=== PATIENT | male | born 1950 | race Caucasian/White ===

== ENCOUNTER 2017-06-18 18:59 | Emergency (ER) | payer MEDICARE, BC ==
[~2017-06-18 18:59] MED LIST: BUTALB-APAP-CA1 EACH PO; FLECTOR1 PATCH TRANSDERM; HYDROCODON-ACE1 EAC7 PO; HYDROCODONE-APA1 TAB PO; LEVSIN/ANASP0.125 MG PO; MONODOX100 MG PO; NEURONTIN 300300 MG PO; TOPROL XL100 MG PO
[2017-06-18 19:36] LABS: APPEARANCE HAZY (CLEAR); BILIRUBIN NEGATIVE (NEGATIVE); COLOR YELLOW (YELLOW); GLUCOSE NEGATIVE (NEGATIVE); KETONE NEGATIVE (NEGATIVE); NITRITE NEGATIVE (NEGATIVE); PROTEIN TRACE mg/dL (NEGATIVE); UROBILINOGEN NORMAL (NORMAL)
[2017-06-18 19:38] LABS: RED CELLS - URINE >50 /hpf (0-5)
[2017-06-18 19:43] LABS: BACTERIA FEW /hpf (NONE SEEN)
[2017-06-18 20:13] LABS: BASOPHILS 0.2 % (0-2); EOSINOPHILS 0.2 % (0-7); HEMATOCRIT 42.1 % (42.0-54.0); HEMOGLOBIN 14.5 g/dL (13.5-17.5); IMMATURE GRANULOCYTES 0.3 % (0-5); LYMPHOCYTES 6.1 % (15-50); MCH 31.8 pg (26.0-34.0); MCHC 34.4 g/dL (31.0-37.0); MCV 92.3 fL (80.0-100.0); MEAN PLATELET VOLUME 10.1 fL (7.4-10.4); MONOCYTES 2.2 % (2-11); PLATELET COUNT 251 10x3/uL (130-400); RBC 4.56 10x6/uL (4.20-6.10); RDW 13.3 % (11.5-14.5); WBC 11.1 10x3/uL (4.8-10.8)
[2017-06-18 20:33] LABS: ALBUMIN 4.3 g/dL (3.4-5.0); ALKALINE PHOSPHATASE 103 U/L (46-116); ALT (SGPT) 47 U/L (10-68); BILIRUBIN - TOTAL 0.49 mg/dL (0.2-1.3); CALC OSMOLALITY 278 mosm/kg (275-300); CALCIUM 9.1 mg/dL (8.5-10.1); CARBON DIOXIDE 29.7 mmol/L (21.0-32.0); CHLORIDE - SERUM 103 mmol/L (98-107); CREATININE - SERUM 1.3 mg/dL (0.6-1.3); GLUCOSE 107 mg/dL (74-106); LIPASE 118 U/L (73-393); POTASSIUM - SERUM 4.2 mmol/L (3.5-5.1); PROTEIN - SERUM 7.9 g/dL (6.4-8.2); SODIUM 139 mmol/L (136-145); UREA NITROGEN 14 mg/dL (7-18); eGFR NON AFRICAN AMERICAN 59 mL/min (90-120)
[2017-06-18 20:34] LABS: TROPONIN-I < 0.017 ng/mL (0.000-0.060)
[2017-06-26] MEDS ORDERED: FLOMAX0.4 MG PO (12:08)
== END 2017-06-18 22:49 | disposition home or self-care (01) ==
LOC: D.ER 18:59
PROVIDERS: Family Medicine
DX: N20.1 Calculus of ureter (principal)

== ENCOUNTER → 2017-06-21 16:00 | Outpatient (CLI) | payer MEDICARE, BC ==
[2015-10-08 11:06] VITALS: BMI 23.1
[~2017-06-21 16:00] MED LIST changes: +FLOMAX0.4 MG PO; +NORCO 7.5/325 T1 TA1 PO
== END | disposition home or self-care (01) ==
LOC: D.LABREF 16:00
DX: N39.0 Urinary tract infection, site not specified (principal)

== ENCOUNTER 2017-06-22 10:11 | Day surgery (SDC) | payer MEDICARE, BC ==
[~2017-06-22] VITALS: Ht 182.9 cm; Wt 83.5 kg
--- NOTE | ~2017-06-22 | OP ---
PATIENT NAME: ABBEY WILSON MEDICAL RECORD: [id number] :52 LOCATION:D.[facility]32 ADMISSION DATE: SURGEON: JODI MADRID MD DATE OF OPERATION: 06/22/2017 SURGEON: Jodi Madrid MD ANESTHESIA: MAC by Chetan Dorado CRNA DIAGNOSIS: Bilateral renal stones, 10 mm on the left and 22 mm on the right with a 4 mm left distal ureteral stone. PROCEDURES: Cystoscopy, left retrograde pyelogram. FINDINGS: Radiodense renal stone, 10 mm on the left and 22 mm on the right. Impacted left distal ureteral stone at the ureteral orifice. No bladder tumors. Mildly obstructive prostate with trabeculated bladder with cellules. ESTIMATED BLOOD LOSS: None. CLINICAL HISTORY: This is a 66-year-old male, who has a previous history of kidney stones. He presented to the Emergency Room with acute left flank pain about [address] scan showed a large renal stones bilaterally with also smaller left and right lower pole renal stones. He has flank pain from a 4-mm left distal ureteral stone. He has ongoing pain requiring [place] 10/325 for control. He is also on Flomax. He comes today to have left ureteroscopy and stone extraction. Because of the large size of the stone burden in both kidneys, he will require a left percutaneous nephrolithotomy in the future and followed by a right percutaneous nephrolithotomy. He was given IV antibiotics prior to the procedure. DESCRIPTION OF PROCEDURE: The patient was given IV sedation. He was placed in the dorsal lithotomy position, prepped and draped. Fluoroscopy revealed that the large renal stones were radiodense. The lower pole stones were not so easily seen. The distal ureteral stone was also not easily seen. Going in with cystoscopy using a 21-Colombian cystoscope with 30-degree lens, the penile urethra was nonobstructive. Prostatic urethra shows some mild lateral lobe enlargement, but primarily has some bladder neck stenosis. Going into the bladder, there were single ureteral orifices on each side. The bladder is mildly trabeculated, but there are diverticula and cellules all around. No bladder tumors were seen. The stone was seen at the ureteral orifice. Usually when we have the situation, the stone is heavily impacted and it is difficult to get past. I used an open-ended ureteral catheter 5-Colombian to try and push the stone back from the ureteral orifice. We performed a retrograde pyelogram using diluted contrast. With great difficulty, this contrast migrated around the stone and highlighted the hydronephrotic left ureter. We attempted to get a Glidewire around the stone, but we were unsuccessful in doing so. As a result, we abandon further attempts. The bladder was emptied through the scope. I then discussed the situation with interventional radiology, Dr. Rg. We will have Dr. Rg place a left nephrostomy tube today to decompress the left kidney. Next week on Sunday, the patient will be brought back to the hospital. He will have a left percutaneous nephrolithotomy access performed through the nephrostomy tube. I will then perform left percutaneous nephrolithotomy to remove the left renal pelvis stone as well as the left lower pole renal stone. Finally, left ureteroscopy will be performed in order to push the distal ureteral stone out of OPERATIVE REPORT [id number] STEVE,SKIP T the ureteral orifice and into the bladder. TRANSINT:[id number] Voice Confirmation ID: [id number] DOCUMENT ID: [id number] JODI MADRID MD at 1235 CC: [id number] DICTATION DATE: 06/22/17 1440 WASTE PICKER: 06/22/17 1505 REG [facility] [address] [place] [id number]
--- NOTE | ~2017-06-22 | HEMODYNAMI ---
PATIENT:ABBEY WILSON MEDICAL RECORD: [id number] : 52 LOCATION:[facility] ADMISSION DATE: 06/22/17 Generatedon:06/22/201719:23 Patient name: ABBEY WILSON Patient #: [id number] SSN: : 1950 Date of study: 06/22/2017 Page: Of Hemodynamic Procedure Report Patient Data Patient Demographics Procedure consent was obtained First Name: ABBEY Gender: Male Last Name: STEVE : 1950 [facility] Initial: T Age: 66 year(s) Patient #: [id number] Race: Unknown Additional ID: [id number] Contact details [address]: [address] [place] [address] ROAD State: [place] City: [place] Zip code: [address] Past Medical History Allergies: No known allergies Admission Admission Data Admission Date: 06/22/2017 Admission Time: 10:11 Weight (lbs.): 184 Weight (kg.): 83.46 Procedure Procedure Types Cath Procedure Peripheral Cath Diagnostic Procedure Cath Peripheral Nephro Nephrostomy Tubes Procedure Description Procedure Date Procedure Date: 06/22/2017 Procedure Start Time: 18:17 Procedure Staff Name Function Hector Rg MD Performing Physician Luisana Zamora RT Composite Technician Luisana Zamora RT Monitor Mary Rosales RN Nurse Alyssa Johnson RN Nurse Bhupinder Martinez RT Scrub Procedure Data Cath Procedure Fluoroscopy Diagnostic fluoroscopy Total fluoroscopy Time: time: 12.7 min 12.7 min Diagnostic fluoroscopy Total fluoroscopy dose: 324 dose: 324 mGy mGy Contrast Material Contrast Material Type Amount (ml) Isovue 300 160 Procedure Medications Medication Administration Route Dosage Heparin Flush Bag added to field 1 bags (1000units/500ml NS) Lidocaine 1% added to field 20 Oxygen NC 3 l/min Versed I.V. 1 mg Fentanyl I.V. 50 mcg Versed I.V. 1 mg Fentanyl I.V. 50 mcg Fentanyl I.V. 50 mcg Versed I.V. 1 mg unlisted medication 100 ml Fentanyl I.V. 50 mcg Versed I.V. 1 mg Versed I.V. 2 mg Fentanyl I.V. 50 mcg unlisted medication 1 Hemodynamics Rest Heart Rate: 50 (bpm) Snapshots Pre Cath Intra NCS Post Cath Vital Signs Time Heart Resp SPO2 etCO2 NIBP (mmHg) Rhythm Pain Status Sedation Rate (ipm) (%) (mmHg) Level (bpm) 18:14:38 49 36 100 10.4 183/88(131) SB 0 (11) , No 10(A) pain 18:18:58 52 21 100 2.9 170/87(139) SB 0 (11) , No 10(A) pain 18:23:39 73 17 100 5.9 169/116(135) NSR 0 (11) , No 8(A) pain 18:28:01 57 7 100 5.9 126/65(103) SB 0 (11) , No 8(A) pain 18:32:11 49 15 100 2.9 131/76(114) SB 2 (11) , 8(A) Uncomfortable 18:36:19 52 21 100 1.4 135/81(116) SB 0 (11) , No 8(A) pain 18:40:31 51 10 100 12.6 116/75(87) SB 0 (11) , No 8(A) pain 18:44:39 55 8 100 12.6 118/65(94) SB 0 (11) , No 8(A) pain 18:48:44 49 8 100 8.1 131/77(94) SB 0 (11) , No 8(A) pain 18:52:54 51 16 99 0.7 140/78(116) SB 2 (11) , 8(A) Uncomfortable 18:57:02 78 18 99 1.4 161/101(119) SB 0 (11) , No 8(A) pain 19:02:01 64 17 98 2.2 Measuring SB 0 (11) , No 8(A) pain 19:02:28 82 20 99 2.2 185/116(154) SB 4 (11) , 8(A) Distressing 19:06:42 76 9 16.3 170/108(147) SB 0 (11) , No 8(A) pain 19:10:58 67 8 44.7 156/89(149) SB 0 (11) , No 8(A) pain 19:15:14 56 12 14.9 152/87(140) SB 0 (11) , No 8(A) pain 19:19:26 58 11 2.9 171/93(139) SB 0 (11) , No 8(A) pain Medications Time Medication Route Dose Verified Delivered Reason Notes Effe ctiveness by by 18:19:24 Heparin Flush added 1 Hector Hector used for Bag to bags MD Ifrah Rg MD procedure (1000units/500ml field NS) 18:19:41 Lidocaine 1% added 20ml Hector Young used for to vial MD Ifrah Rg MD procedure field 18:19:59 Oxygen NC 3 Hector Alyssa l/min MD Alex Rg RN 18:20:11 Versed I.V. 1 mg Hector Alyssa for MD Alex Rg RN sedation 18:20:27 Fentanyl I.V. 50 Hector Alyssa for mcg MD Alex Rg RN sedation 18:24:50 Versed I.V. 1 mg Hector Alyssa for Most ly MD Alex Rg RN sedation sleeping @ 18:32:26 18:24:59 Fentanyl I.V. 50 Hector Alyssa for Most ly mcg MD Alex Rg RN sedation sleeping @ 18:32:21 18:34:11 Fentanyl I.V. 50 Hector Mary for Most ly mcg MD Bobby Rg RN sedation sleeping @ 18:44:37 18:36:27 Versed I.V. 1 mg Hector Mary for Most ly MD Bobby Rg RN sedation sleeping @ 18:44:44 18:43:46 isovue 300 100 Mary Mary used for ml Bobby Rosales RN procedure 18:55:16 Fentanyl I.V. 50 Hector Mary for mcg MD Bobby Rg RN sedation 18:55:32 Versed I.V. 1 mg Hector Mary for MD Bobby Rg RN sedation 19:03:51 Versed I.V. 2 mg Hector Mary for Most ly MD Bobby Rg RN sedation sleeping @ 19:10:25 19:04:14 Fentanyl I.V. 50 Hector Mary for Most ly MD Bobby De La Torre RN sedation sleeping @ 19:10:22 19:22:30 cefepime iv 1 Hector Mary gram MD Bobby Rg RN Procedure Log Time Note 17:45:32 Patient Weight : 184 lbs 17:46:15 Use device set IR Diagnostic 17:53:07 Tegaderm 6 x 8 (7134) opened to sterile field. 17:53:20 KIT, INTRODUCER ACCUSTICK II W/C ([id number]) opened to sterile field. 17:53:23 Sterile Angiographic Pack opened to sterile field. 17:53:24 Bag Decanter (2002S) opened to sterile field. 17:53:31 Time tracking: Regular hours 17:53:54 Plan of Care:Hemodynamics will remain stable., Cardiac rhythm will remain stable., Comfort level will be maintained., Respiratory function will remain adequate., Patient/ family verbilizes understanding of procedure., Procedure tolerated without complication., Recovers from procedure without complications.. 17:54:03 Patient received from Outpatients to IR Alert and oriented. Tansferred to table in Prone position. 17:54:05 Correct patient and procedure confirmed by team. 17:54:08 Signed procedure consent form obtained from patient. 17:54:15 H&P Date Dictated: 06/22/2017 Within 30 days and on chart.. 17:54:17 Pre-procedure instructions explained to patient. 17:54:19 Pre-op teaching completed and patient verbalized understanding. 17:54:23 Family in waiting room. 17:54:25 Patient NPO since Midnight. 17:54:36 Patient allergic to No known allergies 17:54:40 Is the patient allergic to Iodine/contrast media? No. 17:54:44 Is patient on blood thinner?No 17:55:27 Patient diabetic? No. 17:55:35 - 17:55:35 ----Pre-sedation anethsthesia assessment.---- 17:55:38 Previous problem with sedation/anesthesia? No ? 17:55:41 Snore? Yes 17:55:43 Sleep apnea? No 17:55:46 Deviated septum? No 17:55:50 Opens mouth fully? Yes 17:55:52 Sticks out tongue? Yes 17:55:56 Airway obstruction? No ? 17:56:00 Dentures? No ? 17:56:05 - 17:56:21 IV patent on arrival in right hand with D5/.45%NaCl at [facility]. 17:56:33 Left renal area was prepped with chlora-prep and draped in sterile fashion 18:12:20 CHIBA 22 X 15 needle opened to sterile field. 18:12:57 Physician arrived 18:13:23 ECG and BP/O2 sat monitors applied to patient. 18:13:25 Vital chart was started 18:13:26 Baseline sample Acquired. 18:13:28 Full Disclosure recording started 18:13:29 - 18:14:02 --------ALL STOP TIME OUT------ 18:14:03 Final Timeout: patient, procedure, and site verified with staff and physician. All members of the team are in agreement. 18:17:04 Procedure started. 18:17:21 Local anesthetic to left renal with Lidocaine 1% by Hector Rg MD.INITIAL ACCESS ONLY 18:19:24 Heparin Flush Bag (1000units/500ml NS) 1 bags added to field was administered by Hector Rg MD; used for procedure; 18:19:41 Lidocaine 1% 20ml vial added to field was administered by Hector Rg MD; used for procedure; 18:19:59 Oxygen 3 l/min NC was administered by Alyssa Johnson RN; ; 18:20:11 Versed 1 mg I.V. was administered by Alyssa Johnson RN; for sedation; 18:20:27 Fentanyl 50 mcg I.V. was administered by Alyssa Johnson RN; for sedation ; 18:21:58 BAG, DRAINAGE EMPTY 600ML W/SELAM (HCO619) opened to sterile field. 18:21:59 Abscession 8Fr drainage catheter ([id number]) opened to sterile field. 18:22:00 Tegaderm 6 x 8 (1628) opened to sterile field. 18:22:[address] 3-Way Large Bore (J44680) opened to sterile field. 18:24:50 Versed 1 mg I.V. was administered by Alyssa Johnson RN; for sedation; 18:24:59 Fentanyl 50 mcg I.V. was administered by Alyssa Johnson RN; for sedation ; 18:32:21 Effectiveness of Fentanyl delivered @ 18:24:59 is: Mostly sleeping 18:32:26 Effectiveness of Versed delivered @ 18:24:50 is: Mostly sleeping 18:34:11 Fentanyl 50 mcg I.V. was administered by Mary Rosales RN; for sedation; 18:36:27 Versed 1 mg I.V. was administered by Mary Rosales RN; for sedation; 18:43:46 isovue 300 100 ml was administered by Mary Rosales RN; used for procedure;via iv. 18:44:37 Effectiveness of Fentanyl delivered @ 18:34:11 is: Mostly sleeping 18:44:44 Effectiveness of Versed delivered @ 18:36:27 is: Mostly sleeping 18:48:06 CHIBA 22 X 15 needle opened to sterile field. 18:55:11 GLIDE WIRE ANGLE 180cm (DP2869) opened to sterile field. 18:55:12 CHIBA 22 X 15 needle opened to sterile field. 18:55:16 Fentanyl 50 mcg I.V. was administered by Mary Rosales RN; for sedation; 18:55:32 Versed 1 mg I.V. was administered by Mary Rosales RN; for sedation; 18:57:09 BENTSON 145cm wire (W59568) opened to sterile field. 18:59:24 GLIDE WIRE Angled Super Stiff 180cm (BV5731) opened to sterile field. 19:03:51 Versed 2 mg I.V. was administered by Mary Rosales RN; for sedation; 19:04:10 10FR Nephroureterostomy Stent (A94816) opened to sterile field. 19:04:14 Fentanyl 50 mcg I.V. was administered by Mary Rosales RN; for sedation; 19:10:22 Effectiveness of Fentanyl delivered @ 19:04:14 is: Mostly sleeping 19:10:25 Effectiveness of Versed delivered @ 19:03:51 is: Mostly sleeping 19:12:15 Procedure ended.(Physican Out) 19:14:04 Procedure and supply charges have been captured, reviewed, submitted an d are correct. 19:14:17 Fluoroscopy time 12.70 minutes. 19:14:21 Fluoroscopy dose: 324 mGy 19:14:21 Flurop Dose total: 324 19:14:29 Contrast amount:Isovue 300 160ml. 19:22:30 cefepime 1 gram iv was administered by Mary Rosales RN; ; 19:23:20 Vital chart was stopped Device Usage Item Name Manufacture Quantity Catalog Hospital Part Current Minimal Lot# / Number Charge Number Stock Stock Serial# Code KIT, INTRODUCER [place] 1 [id number] 611486 [id number] 5 ACCUSTICK II W/C Scientific ([id number]) Sterile Cardinal 1 [id number] 830002 700893 5 Angiographic Pack Health Bag Decanter Microtek 1 2001S 090483 34679 542046 5 (2001S) [employer] CHIBA 22 X 15 [facility] 3 [id number] 058599 453310 5 [id number] needle [id number] [id number] BAG, DRAINAGE [facility] 1 [id number] 287187 258491 035110 5 EMPTY 600ML W/SELAM (NBH581) Abscession 8Fr Angiodynamics 1 [id number] 932619 531858 890055 5 drainage catheter ([id number]) Tegaderm 6 x 8 3M 2 1628 216728 806794 5 (1628) STOPCOCK 3-Way [facility] 1 D61954 548546 3742 815644 5 [id number] Large Bore (P62508) GLIDE WIRE ANGLE Terumo 1 NG6461 634746 359365 726557 5 180cm (CF3827) BENTSON 145cm wire [facility] 1 Q37533 779364 418654 5 [id number] (R71514) GLIDE WIRE Angled Terumo 1 NJ6998 455753 107148 5 Super Stiff 180cm (ZD5980) 10FR [facility] 1 P65176 464639 662342 202591 5 Nephroureterostomy Stent (K57799) Signature Audit [place] Stage Time Signature Unsigned Intra-Procedure 06/22/2017 Luisana Zamora 7:23:15 PM RT(R) Signatures Monitor : Luisana Zamora RT Signature : Date : Time : [place] [address] [id number] [place] [address]
[~2017-06-22 10:11] MED LIST changes: -FLOMAX0.4 MG PO; -NORCO 7.5/325 T1 TA1 PO
[2017-06-22 11:09] VITALS: BP 129/83; BMI 25.1
[2017-06-22 11:30] LABS: HEMATOCRIT 37.1 % (42.0-54.0); HEMOGLOBIN 12.6 g/dL (13.5-17.5); MCH 31.2 pg (26.0-34.0); MCV 91.8 fL (80.0-100.0); RBC 4.04 10x6/uL (4.20-6.10); RDW 13.4 % (11.5-14.5); WBC 6.3 10x3/uL (4.8-10.8)
[2017-06-22 15:22] LABS: BASOPHILS 0.4 % (0-2); EOSINOPHILS 2.3 % (0-7); HEMATOCRIT 37.2 % (42.0-54.0); HEMOGLOBIN 12.5 g/dL (13.5-17.5); IMMATURE GRANULOCYTES 0.2 % (0-5); LYMPHOCYTES 31.3 % (15-50); MCH 31.3 pg (26.0-34.0); MCHC 33.6 g/dL (31.0-37.0); MEAN PLATELET VOLUME 10.1 fL (7.4-10.4); MONOCYTES 6.3 % (2-11); NEUTROPHILS 59.5 % (40-80); PLATELET COUNT 201 10x3/uL (130-400); RDW 13.4 % (11.5-14.5); WBC 5.2 10x3/uL (4.8-10.8)
[2017-06-22 15:26] LABS: INR 1.08 (0.85-1.17); PROTIME 13.6 SECONDS (11.6-15.0)
[2017-06-22 15:30] LABS: ANION GAP 12.4 mmol/L (8-16); CALCIUM 8.4 mg/dL (8.5-10.1); CARBON DIOXIDE 26.8 mmol/L (21.0-32.0); CREATININE - SERUM 1.2 mg/dL (0.6-1.3); POTASSIUM - SERUM 4.2 mmol/L (3.5-5.1)
[2017-06-22 20:40] VITALS: BP 156/79
[2017-06-23 00:01] VITALS: BP 143/67
[2017-06-23 00:04] VITALS: BP 156/79; Ht 182.9 cm; Wt 83.5 kg
[2017-06-23 05:24] VITALS: BP 100/43
[2017-06-23 08:39] VITALS: BP 129/89
[2017-06-23 12:32] VITALS: BP 134/77
[2017-06-26] MEDS ORDERED: FLOMAX0.4 MG PO (12:08)
== END 2017-06-23 15:30 | disposition home or self-care (01) ==
LOC: D.MS 10:11 → D.OPS 10:11 → D.PAN 12:00 → D.OPS 12:00 → D.MS 19:34 → D.OPS 06-23 15:30
PROVIDERS: Anesthesiology; General Practice; Urology
DX: N20.2 Calculus of kidney with calculus of ureter (principal); Z87.442 Personal history of urinary calculi; N40.1 Benign prostatic hyperplasia with lower urinary tract symptoms; N13.8 Other obstructive and reflux uropathy; N32.89 Other specified disorders of bladder; Z01.812 Encounter for preprocedural laboratory examination

== ENCOUNTER 2017-06-27 05:50 | Inpatient (IN) | payer MEDICARE, BC ==
[~2017-06-27] VITALS: Ht 182.9 cm; Wt 84.1 kg
--- NOTE | ~2017-06-27 | OP ---
PATIENT NAME: ABBEY WILSON MEDICAL RECORD: [id number] :52 LOCATION:D.[facility]12 ADMISSION DATE: SURGEON: JODI MADRID MD DATE OF OPERATION: 06/27/2017 SURGEON: Jodi Madrid MD ANESTHESIA: General anesthesia by Dr. Fidencio Mcrae. PREOPERATIVE DIAGNOSIS: Left renal stone, 10 mm plus 5 mm in the lower pole. FINDINGS: Radiodense 10 mm left renal pelvis stone. Multiple stones in the left lower pole swetha adding up to 5 mm. On nephrostogram, no filling defects seen in the distal ureter. PROCEDURES: Cystoscopy and left percutaneous nephrolithotomy. ESTIMATED BLOOD LOSS: Minimal. CLINICAL HISTORY: This is a 66-year-old male, who has a previous history of kidney stones. When I saw him in the office, he was found to have on CT scan a 22 mm stone in the right kidney as well as multiple smaller renal stones in the right lower pole swetha. In the left kidney, he had a 10-mm stone in the renal pelvis with multiple smaller stones in the left lower pole swetha. He was having acute left flank pain due to a 4-mm left distal ureteral stone at the UV junction. I brought him to the OR to try to remove the ureteral stone, but I was unsuccessful. The stone seemed to be highly impacted. As he was going to need a percutaneous nephrolithotomy in order to take out the stones in the left kidney anyway, I sent him to have a left nephroureteral access performed by Dr. Rg in interventional radiology. During placement of the nephroureteral catheter, Dr. Rg suspected, but was not certain that he may have pushed the ureteral stone out. At any rate, earlier today, he had the left nephroureteral tube changed over for an access for our percutaneous nephrolithotomy. I planned to also perform ureteroscopy to try to verify that the stone in the ureter was gone. The patient was given 2 grams of Ancef. He is not allergic to any medication. DESCRIPTION OF PROCEDURE: The patient was initially given general anesthetic in supine position on the stretcher. We then put his legs into frog-leg position and performed cystoscopy using a 21-German cystoscope with 30-degree lens. Going into the bladder with the cystoscope. We identified the distal end of the nephroureteral access catheter. Grasping forceps were used and the distal end of the catheter was pulled out through the penile meatus. The patient was then turned into the prone position on the Chito frame. All of the pressure points were padded. He was then prepped and draped. The nephroureteral catheter was accessed using an Amplatz Super Stiff wire. This was passed down through the nephroureteral tube and out through his penile meatus. There, the circulating nurse was able to clamp the wire with a hemostat to prevent its backward migration and loss of the tract. The nephroureteral catheter was then removed entirely and discarded. An incision was made on either side of the Super Stiff wire with a #15 blade. A dual-lumen catheter was then inserted down into the proximal ureter. Through the second lumen a Sensor wire was placed down into the bladder. Once the wires were in place, the dual lumen catheter was removed. The Sensor wire was clamped to the drapes to act as a safety wire. We then put the NephroMax balloon dilator into position. This was over the Super Stiff OPERATIVE REPORT [id number] ABBEY WILSON. The balloon was inflated with 16 atmospheres of pressure and the working sheath was slid down over the balloon. Once the sheath was in correct position with the tip of it just being at the level of the large 10 mm renal pelvis stone, then the balloon was deflated and removed entirely. We put our nephroscope down. We could see the large 10-mm stone. We had to narrow down its width somewhat using the [place] LithoClast ultrasonic probe. Finally, we were able to use the Cook Hvaq-A-kmsgff stone basket and completely removed the 10-mm stone in 1 go. Angling the scope down into the lower pole calices, there was a compound swetha visible here. Smaller stones were visible here. These were all removed using the [place] LithoClast ultrasonic probe. No renal injury at anytime was seen. Finally, I removed the nephroscope and I attempted to get the flexible ureteroscope down the ureter, but I was unable to get at it due to the bleeding from the stone removal earlier. At this point, I decided not to attempt ureteroscopy. Instead, we placed the 24-German Malecot nephrostomy tube into the renal pelvis. The Super Stiff wire was completely removed by pulling it distally from the penile meatus. A nephrostogram was then performed using diluted contrast. We were able to observe the contrast going down the ureter and all the way into the bladder. There was no sign of any hydronephrosis or filling defect to suggest a stone. The Sensor wire was completely removed also. At this point, the nephrostomy tube was tied down using a 2-0 nylon suture. Sterile dressings were applied and the patient was awakened and brought to the recovery room. The nephrostomy tube goes to bag drainage. I will keep the patient in hospital for at least 1 day. Once the nephrostomy drainage is less bloody than I can send the patient home either with the nephrostomy tube in place still or with the nephrostomy tube out if its postoperative day #2. TRANSINT:[id number] Voice Confirmation ID: [id number] DOCUMENT ID: [id number] JODI MADRID MD at 0801 CC: [id number] DICTATION DATE: 06/27/17 1524 DIGITAL PHOTO PRINTER: 06/27/17 1634 REG [facility] [address] [id number]
--- NOTE | ~2017-06-27 | HEMODYNAMI ---
PATIENT:ABBEY WILSON MEDICAL RECORD: [id number] : 52 [id number] ADMISSION DATE: 06/27/17 Generatedon:06/27/20179:11 Patient name: ABBEY WILSON Patient #: [id number] SSN: : 1950 Date of study: 06/27/2017 Page: Of Hemodynamic Procedure Report Patient Data Patient Demographics Procedure consent was obtained First Name: ABBEY Gender: Male Last Name: STEVE : 1950 Middle Initial: T Age: 66 year(s) Patient #: [id number] Race: Unknown Additional ID: [id number] Contact details Address: [address] [place] [address] ROAD State: [place] City: [place] Zip code: [address] Past Medical History Allergies: No known allergies Admission Admission Data Admission Date: 06/27/2017 Admission Time: 5:50 Procedure Procedure Types Cath Procedure Peripheral Cath Diagnostic Procedure Cath Peripheral Nephro Perc Neph Uret Cath Procedure Description Procedure Date Procedure Date: 06/27/2017 Procedure Start Time: 8:53 Procedure Staff Name Function Evette Obando MD Performing Physician Alyssa Johnson RN Nurse Luisana Zamora RT Scrub Procedure Data Cath Procedure Fluoroscopy Diagnostic fluoroscopy Total fluoroscopy Time: 2.2 time: 2.2 min min Diagnostic fluoroscopy Total fluoroscopy dose: 76 dose: 76 mGy mGy Contrast Material Contrast Material Type Amount (ml) Isovue 300 30 Procedure Medications Medication Administration Route Dosage Heparin Flush Bag added to field 1 bags (1000units/500ml NS) Lidocaine 1% added to field 20 Oxygen NC 3 l/min Fentanyl I.V. 50 mcg Versed I.V. 1 mg Fentanyl I.V. 50 mcg Versed I.V. 1 mg Fentanyl I.V. 50 mcg Versed I.V. 1 mg Hemodynamics Rest Heart Rate: 53 (bpm) Snapshots Pre Cath Intra NCS Post Cath Vital Signs Time Heart Resp etCO2 NIBP (mmHg) Rhythm Pain Sedation Rate (ipm) (mmHg) Status Level (bpm) 8:40:30 53 0 18.1 121/68(92) NSR 0 (11) 10(A) , No pain 8:41:31 55 17 22.6 117/65(87) NSR 0 (11) 10(A) , No pain 8:45:39 54 13 25.7 111/67(86) NSR 0 (11) 10(A) , No pain 8:49:45 55 15 24.2 112/66(88) NSR 0 (11) 10(A) , No pain 8:53:53 61 14 30.2 110/65(81) NSR 0 (11) 10(A) , No pain 8:58:38 68 15 19.6 137/87(101) NSR 0 (11) 9(A) , No pain 9:02:49 67 8 42.3 121/71(96) NSR 0 (11) 10(A) , No pain 9:06:59 62 9 44.6 112/66(90) NSR 0 (11) 10(A) , No pain Medications Time Medication Route Dose Verified Delivered Reason Notes Effect iveness by by 8:29:22 Heparin Flush added 1 M J Long M J Long used for Bag to bags MD DOMINGUEZ procedure (1000units/500ml field NS) 8:29:36 Lidocaine 1% added 20ml M J Long M J Long used for to vial MD DOMINGUEZ procedure field 8:29:54 Oxygen NC 3 M J Long Alyssa used for l/min MD Alex OLIVA procedure 8:54:44 Fentanyl I.V. 50 M J Long Alyssa for mcg MD Alex OLIVA sedation 8:54:53 Versed I.V. 1 mg M J Long Alyssa for MD Alex OLIVA sedation 8:56:57 Fentanyl I.V. 50 M J Long Alyssa for dawna Johnson RN sedation 8:57:04 Versed I.V. 1 mg M J Long Alyssa for MD Alex OLIVA sedation 9:00:49 Fentanyl I.V. 50 M J Long Alyssa for dawna Johnson RN sedation 9:00:56 Versed I.V. 1 mg M J Long Alyssa for MD Alex OLIVA sedation Procedure Log Time Note 8:13:32 Use device set IR Diagnostic 8:13:34 Sterile Angiographic Pack opened to sterile field. 8:13:36 Bag Decanter (2002S) opened to sterile field. 8:13:37 Tegaderm 4 x 4 (1626W) opened to sterile field. 8:13:55 GLIDE WIRE Angled Super Stiff 180cm ([id number]) opened to sterile field. 8:14:13 GLIDE CATHETER 5FR ANGLED 100cm (CG508) opened to sterile field. 8:25:47 Time tracking: Regular hours 8:26:28 Plan of Care:Hemodynamics will remain stable., Cardiac rhythm will remain stable., Comfort level will be maintained., Respiratory function will remain adequate., Patient/ family verbilizes understanding of procedure., Procedure tolerated without complication., Recovers from procedure without complications.. 8:26:36 Patient received from Outpatients to IR Alert and oriented. Tansferred to table in Prone position. 8:26:39 Correct patient and procedure confirmed by team. 8:26:41 Signed procedure consent form obtained from patient. 8:26:47 H&P Date Dictated: 06/27/2017 Within 30 days and on chart.. 8:26:49 Pre-procedure instructions explained to patient. 8:26:50 Pre-op teaching completed and patient verbalized understanding. 8:26:52 Family in waiting room. 8:26:54 Patient NPO since Midnight. 8:27:04 Patient allergic to No known allergies 8:27:07 Is the patient allergic to Iodine/contrast media? No. 8:27:09 Is patient on blood thinner?No 8:27:14 Patient diabetic? No. 8:27:16 8:27:17 ----Pre-sedation anethsthesia assessment.---- 8:27:20 Previous problem with sedation/anesthesia? No ? 8:27:24 Snore? No 8:27:29 Sleep apnea? No 8:27:35 Deviated septum? No 8:27:37 Opens mouth fully? Yes 8:27:46 Sticks out tongue? Yes 8:27:58 Airway obstruction? No ? 8:28:02 Dentures? No ? 8:28:03 8:28:31 IV patent on arrival in right wrist with D5/.45%NaCl at KVO. 8::45 Left abdomen area was prepped with chlora-prep and draped in sterile fashion 8:29:22 Heparin Flush Bag (1000units/500ml NS) 1 bags added to field was administered by Evette Obando MD; used for procedure; 8:29:36 Lidocaine 1% 20ml vial added to field was administered by Evette Obando MD; used for procedure; 8:29:54 Oxygen 3 l/min NC was administered by Alyssa Johnson RN; used for procedure; 8:40:28 ECG and BP/O2 sat monitors applied to patient. 8:40:30 Vital chart was started 8:40:31 Baseline sample Acquired. 8:40:32 Full Disclosure recording started 8:40:33 8:53:12 Physician arrived 8:53:14 --------ALL STOP TIME OUT------ 8:53:16 Final Timeout: patient, procedure, and site verified with staff and physician. All members of the team are in agreement. 8:53:28 Procedure started. 8:53:49 Local anesthetic to Thoracic area with Lidocaine 1% by Evette Obando MD.INITIAL ACCESS ONLY 8:54:44 Fentanyl 50 mcg I.V. was administered by Alyssa Johnson RN; for sedation; 8:54:53 Versed 1 mg I.V. was administered by Alyssa Johnson RN; for sedation; 8:56:57 Fentanyl 50 mcg I.V. was administered by Alyssa Alex RN; for sedation; 8:57:04 Versed 1 mg I.V. was administered by Alyssa Johnson RN; for sedation; 9:00:49 Fentanyl 50 mcg I.V. was administered by Alyssa Johnson RN; for sedation; 9:00:56 Versed 1 mg I.V. was administered by Alyssa Johnson RN; for sedation; 9:09:05 ANTEGRADE PLYOGRAM PERFORMED POST 5FR CATH PLACEMENT 9:09:17 Procedure ended.(Physican Out) 9:09:27 Fluoroscopy time 02.20 minutes. 9::31 Fluoroscopy dose: 76 mGy 9::31 Flurop Dose total: 76 9::59 Contrast amount:Isovue 300 30ml. 9:10:01 Procedure and supply charges have been captured, reviewed, submitted and are correct. 9:10:59 Vital chart was stopped Device Usage Item Name Manufacture Quantity Catalog Hospital Part Current Minimal Lot# / Number Charge Number Stock Stock Serial# Code Sterile Cardinal 1 [id number] 5 Angiographic Health Pack Bag Decanter Microtek 1 2001S [id number] 99191 [id number] 5 () Medical Inc. Tegaderm 4 x 3M 1 1626W 434472 [id number] [id number] 5 4 (1626W) GLIDE WIRE Terumo 1 [id number] [id number] 809845 5 Angled Super Stiff 180cm (WW6981) GLIDE Terumo 1 CG508 556002 15743 [id number] 4 CATHETER 5FR ANGLED 100cm (CG508) Signature Audit [place] Stage Time Signature Unsigned Intra-Procedure 06/27/2017 Luisana Zamora 9:10:54 AM RT(R) [facility] [address] [place] [address]
[~2017-06-27 05:50] MED LIST changes: +FLOMAX0.4 MG PO
[2017-06-27 06:31] LABS: BASOPHILS 0.5 % (0-2); EOSINOPHILS 4.6 % (0-7); HEMATOCRIT 41.3 % (42.0-54.0); IMMATURE GRANULOCYTES 0.2 % (0-5); LYMPHOCYTES 24.2 % (15-50); MCH 31.6 pg (26.0-34.0); MCHC 33.9 g/dL (31.0-37.0); MCV 93.2 fL (80.0-100.0); MEAN PLATELET VOLUME 9.7 fL (7.4-10.4); NEUTROPHILS 64.5 % (40-80); RBC 4.43 10x6/uL (4.20-6.10); RDW 13.5 % (11.5-14.5); WBC 5.8 10x3/uL (4.8-10.8)
[2017-06-27 06:34] LABS: PLATELET COUNT 258 10x3/uL (130-400)
[2017-06-27 06:39] LABS: APTT 26.3 SECONDS (22.8-39.4); INR 0.95 (0.85-1.17); PROTIME 12.3 SECONDS (11.6-15.0)
[2017-06-27 06:44] LABS: ANION GAP 13.3 mmol/L (8-16); CALCIUM 9.2 mg/dL (8.5-10.1); CARBON DIOXIDE 27.3 mmol/L (21.0-32.0); CREATININE - SERUM 1.5 mg/dL (0.6-1.3); POTASSIUM - SERUM 3.6 mmol/L (3.5-5.1)
[2017-06-27 07:41] VITALS: BP 122/82; BMI 25.1
[2017-06-27 16:37] VITALS: BP 138/96
[2017-06-27 17:31] VITALS: BP 133/96; Ht 182.9 cm; Wt 84.1 kg
[2017-06-27 20:51] VITALS: BP 175/106
[2017-06-28 04:30] VITALS: BP 176/90
[2017-06-28 08:18] VITALS: BP 138/84
[2017-06-28] MEDS ORDERED: NORCO 7.5/325 T1 TA1 PO (12:07)
[2017-07-10 15:31] LABS: CALCULI - CA OXALATE DIHYDRATE 45 % (()); CALCULI - CA OXALATE MONOHYDR 40 % (()); CALCULI - CALCIUM PHOSPHATE 15 % (()); CALCULI - COLOR Brown (()); CALCULI - SIZE 12x9x7 mm (()); CALCULI - WEIGHT 683.2 mg (())
== END 2017-06-28 15:18 | disposition home or self-care (01) | DRG 661 ==
LOC: D.MS 05:50 → D.SP 05:50 → D.MS 05:50 → D.SP 08:00 → D.PAN 09:55 → D.SP 10:00 → D.PAN 10:00 → EDSTATUS 10:00 → D.OPS 11:30 → D.SP 15:26 → D.MS 15:26 → D.SP 06-28 13:10 → D.MS 06-28 15:04 → D.SP 06-28 15:04 → D.MS 06-28 15:18
PROVIDERS: Radiology Vascular & Interventional Radiology; Urology
PROC: 0TC48ZZ Extirpation of Matter from Left Kidney Pelvis, Via Natural or Artificial Opening Endoscopic (ICD-10-PCS; principal; 2017-06-27 08:00)
PROC: 0TP93DZ Removal of Intraluminal Device from Ureter, Percutaneous Approach (ICD-10-PCS; 2017-06-27 10:00)
PROC: 0T9B30Z Drainage of Bladder with Drainage Device, Percutaneous Approach (ICD-10-PCS; 2017-06-27 10:00)
DX: N20.2 Calculus of kidney with calculus of ureter (principal)

== ENCOUNTER 2017-07-19 06:50 | Inpatient (IN) | payer MEDICARE, BC ==
[2017-07-17 14:24] LABS: BASOPHILS 0.3 % (0-2); EOSINOPHILS 1.3 % (0-7); HEMATOCRIT 39.7 % (42.0-54.0); HEMOGLOBIN 13.4 g/dL (13.5-17.5); IMMATURE GRANULOCYTES 0.3 % (0-5); LYMPHOCYTES 11.7 % (15-50); MCH 31.8 pg (26.0-34.0); MCHC 33.8 g/dL (31.0-37.0); MCV 94.1 fL (80.0-100.0); MEAN PLATELET VOLUME 9.6 fL (7.4-10.4); MONOCYTES 6.4 % (2-11); PLATELET COUNT 247 10x3/uL (130-400); RBC 4.22 10x6/uL (4.20-6.10); RDW 13.7 % (11.5-14.5)
[2017-07-17 14:34] LABS: ANION GAP 10.3 mmol/L (8-16); CALCIUM 9.1 mg/dL (8.5-10.1); CREATININE - SERUM 1.2 mg/dL (0.6-1.3); POTASSIUM - SERUM 4.3 mmol/L (3.5-5.1)
[2017-07-17 15:12] LABS: APTT 29.7 SECONDS (22.8-39.4); INR 0.99 (0.85-1.17); PROTIME 12.7 SECONDS (11.6-15.0)
[~2017-07-19] VITALS: Ht 182.9 cm; Wt 84.1 kg
--- NOTE | ~2017-07-19 | OP ---
PATIENT NAME: ABBEY WILSON MEDICAL RECORD: [id number] :52 LOCATION:[facility] ADMISSION DATE: SURGEON: JODI MADRID MD DATE OF OPERATION: 07/19/2017 SURGEON: Jodi Madrid MD ANESTHESIA: General anesthesia by Venu Phelps CRNA. DIAGNOSIS: Right renal stone, 22 mm with lower pole stone 6 mm. PROCEDURES: Right percutaneous nephrolithotomy (PCNL). FINDINGS: Radiodense very hard 22 mm lower pole stone with other smaller lower pole stones. SPECIMENS: Renal stone. BLOOD LOSS: Minimal. CLINICAL HISTORY: This is a 66-year-old male who initially presented with bilateral renal stones. On the left side, he had a 4mm obstructive UVJ stone with renal 10-mm + 5mm non obstructing stones. He had the stones removed with a left PCNL. The stone analysis is 85% calcium oxalate plus 15% calcium phosphate. He still has a 22-mm right renal stone with lower pole stones associated with it. He is asymptomatic from this, but he would like to have the stone removed before it causes problems in the future. He is not allergic to any medication. He was given ampicillin and sulbactam 3 grams IV substation operator helper generation to the OR. Earlier this morning, interventional radiology placed a nephroureteral access through the mid pole on the right kidney. DESCRIPTION OF PROCEDURE: The patient was given induction of general anesthesia while in supine position. We then put his legs in frog-leg position and prepped and draped him. Cystoscopy was performed using a 21-Cook Islander cystoscope with 30-degree lens. He has some trilobar hyperplasia of the prostate. No bladder tumors were seen. The distal end of the nephroureteral stent was seen in the bladder. This end was grasped using graspers and pulled out through the penile meatus. Thus, when we insert our Super Stiff wire from above, it will come out through the penile meatus. We can then clamp the wire with a hemostat and prevent its backward migration and loss of access. Once this cystoscopy had been performed, we turned the patient to the prone position, onto the [place] frame. All pressure points were padded. He was again prepped and draped. The nephroureteral access was then opened and an Amplatz Super Stiff wire was placed down the lumen. The distal end went out through the penile meatus and the circulating nurse put a hemostat on it. The nephroureteral access tube was completely removed. A small incision was made on either side of the wire. We then inserted the dual lumen catheter into the proximal ureter. The second lumen had a Sensor wire placed down into the bladder. This would act as our safety wire. Once the 2 wires were in position, the dual lumen catheter was removed. The Sensor wire was clamped to the drapes as our safety wire. The stone is quite readily visible as a large radiodensity. The tract was dilated using the Nephromax balloon dilator with 20 atmospheres of pressure. A 30 Cook Islander working sheath was then placed down into the renal pelvis. The balloon was then deflated and removed entirely. We then entered into OPERATIVE REPORT [id number] ABBEY WILSON T the renal pelvis with the nephroscope. Following the wires, we could see the UP junction. The stone; however, was not present within the renal pelvis proper. Instead, it was in the lower pole calices. It was very hard and we used the Kosovan LithoClast ultrasonic modality to start cutting the stone into smaller chunks. The LensX Lasers Iamd-N-Dabgve basket was used to remove these larger chunks. A lot of debris was also generated by the ultrasonic modality. It does have suction to remove the smaller stone particles and debris. Eventually, we got virtually all of the stone out. There was still a bit of dust here and there. However, the stone material in our Kosovan LithoClast vacuum line had clogged up the line. We had to get a new vacuum line and stone catcher for the Kosovan LithoClast. We continued to use the Kosovan LithoClast to vacuum up all the smaller stone debris until the patient was effectively stone free. This LithoClast was also placed down the UP junction to catch any stone debris that may have gone down the proximal ureter. At the end of the case, there was only some dust left in the kidney. Under fluoroscopy, we could not see any further radiodensities. A 22-Cook Islander Malecot catheter was inserted into the renal pelvis as a nephrostomy tube. This was placed over the Amplatz Super Stiff wire. Once the nephrostomy tube was in correct position, the stylet was removed to allow the wings of the Malecot to expand. The working sheath was removed and the safety wire was also entirely removed. The circulating nurse then pulled on the hemostat to remove the Super Stiff wire entirely via the penile meatus. At the end of the case, the nephrostomy tube was sutured down to the skin using 2-0 silk. The nephrostomy tube was put to bag drainage. The Reyes catheter, which we inserted after cystoscopy was removed. The patient will be admitted for pain management. TRANSINT:[id number] Voice Confirmation ID: [id number] DOCUMENT ID: [id number] JODI MADRID MD at 1456 CC: [id number] DICTATION DATE: 07/19/17 1348 SURGICAL SCRUB TECHNOLOGIST: 07/19/17 1409 REG [facility] [address] [place] [address]
--- NOTE | ~2017-07-19 | HEMODYNAMI ---
PATIENT:ABBEY WILSON MEDICAL RECORD: [id number] : 52 LOCATION:[facility] ADMISSION DATE: 07/19/17 Generatedon:07/19/201710:12 Patient name: ABBEY WILSON Patient #: [id number] SSN: : 1950 Date of study: 07/19/2017 Page: Of Hemodynamic Procedure Report Patient Data Patient Demographics Procedure consent was obtained First Name: ABBEY Gender: Male Last Name: STEVE : 1950 Middle Initial: T Age: 66 year(s) Patient #: [id number] Race: Unknown Additional ID: [id number] Contact details Address: [address] [place] [address] ROAD State: [place] City: [place] Zip code: [address] Past Medical History Allergies: No known allergies Admission Admission Data Admission Date: 07/19/2017 Admission Time: 6:50 Procedure Procedure Types Cath Procedure Peripheral Cath Diagnostic Procedure Nephro Perc Neph Uret Cath Procedure Description Procedure Date Procedure Date: 07/19/2017 Procedure Start Time: 9:36 Procedure End Time: 10:12 Procedure Staff Name Function Evette Obando MD Performing Physician Kelsi Taylor RT Monitor Mary Rosales RN Nurse Bhupinder Martinez RT Scrub Procedure Data Cath Procedure Fluoroscopy Diagnostic fluoroscopy Total fluoroscopy Time: 6.8 time: 6.8 min min Diagnostic fluoroscopy Total fluoroscopy dose: 70 dose: 70 mGy mGy Contrast Material Contrast Material Type Amount (ml) Isovue 300 25 Procedure Medications Medication Administration Route Dosage Versed I.V. 2 mg Fentanyl I.V. 50 mcg Lidocaine 1% added to field 20 Heparin Flush Bag added to field 1 bags (1000units/500ml NS) Oxygen etCO2 Nasal cannula 4 l/min unlisted medication I.V. 1 g Versed I.V. 2 mg Fentanyl I.V. 50 mcg Versed I.V. 2 mg Fentanyl I.V. 50 mcg Fentanyl I.V. 50 mcg Fentanyl I.V. 50 mcg Hemodynamics Rest Heart Rate: 70 (bpm) Snapshots Pre Cath Intra NCS Post Cath Vital Signs Time Heart Resp SPO2 etCO2 NIBP (mmHg) Rhythm Pain Status Sedation Rate (ipm) (%) (mmHg) Level (bpm) 9:21:36 100 24.8 129/75(101) NSR 0 (11) , No 10(A) pain 9:25:50 76 13 100 20.3 135/76(120) NSR 0 (11) , No 10(A) pain 9:30:02 77 7 29.3 134/83(113) NSR 0 (11) , No 10(A) pain 9:34:14 78 12 39.8 131/81(95) NSR 0 (11) , No 10(A) pain 9:38:22 81 14 30.8 121/80(100) NSR 2 (11) , 8(A) Uncomfortable 9:42:30 78 15 99 32.3 130/80(99) NSR 2 (11) , 8(A) Uncomfortable 9:46:42 73 12 96 44.4 101/68(83) NSR 2 (11) , 8(A) Uncomfortable 9:50:45 75 9 96 45.1 108/76(84) NSR 2 (11) , 8(A) Uncomfortable 9:54:51 77 9 95 45.1 115/74(85) NSR 2 (11) , 8(A) Uncomfortable 9:59:40 77 9 97 42.9 129/85(114) NSR 0 (11) , No 8(A) pain 10:03:50 67 13 95 41.3 117/80(97) NSR 0 (11) , No 8(A) pain 10:08:02 70 9 94 42.1 111/74(85) NSR 0 (11) , No 8(A) pain 10:12:10 57 12 95 39.8 115/74(90) NSR 0 (11) , No 8(A) pain Medications Time Medication Route Dose Verified Delivered Reason Notes Effect iveness by by 9:36:03 Versed I.V. 2 mg Evette Hernandez for Fully awake @ MD Bobby OLIVA sedation 10:01:59 9:36:12 Fentanyl I.V. 50 Evette Hernandez for Fully awake @ mcg MD Bobby OLIVA sedation 10:02:02 9:37:01 Lidocaine 1% added 20ml M J Long M J Long Per to vial MD DOMINGUEZ protocol field 9:37:11 Heparin Flush added 1 M J Long M J Long Per Bag to bags MD DOMINGUEZ protocol (1000units/500ml field NS) 9:37:30 Oxygen etCO2 4 M J Long Mary Per Nasal l/min MD Bobby OLIVA protocol cannula 9:38:16 CEFIPIME I.V. 1 g M J Long Mary Per MD Bobby OLIVA protocol 9:40:27 Versed I.V. 2 mg M J Long Mary for Dozing MD Bobby OLIVA sedation intermittently @ 10:02:08 9:44:04 Fentanyl I.V. 50 M J Long Mary for Dozing mcg MD Bobby OLIVA sedation intermittently @ 10:02:13 9:49:22 Fentanyl I.V. 50 M J Long Mary for Dozing mcg MD Bobby OLIVA sedation intermittently @ 10:02:16 9:54:40 Fentanyl I.V. 50 M J Long Mary for Dozing mcg MD Bobby OLIVA sedation intermittently @ 10:02:19 9:58:18 Versed I.V. 2 mg M J Long Mary for Dozing MD Rosales RN sedation intermittently @ 10:02:23 9:58:26 Fentanyl I.V. 50 M J Long Mary for Dozing mcg MD Bobby OLIVA sedation intermittently @ 10:02:25 Procedure Log Time Note 8:59:00 Kelsi GARZON (R) (CV) sent for patient. Start room use. 8:59:14 Time tracking: Regular hours (M-F 7:00 - 5:00) 8:59:26 Plan of Care:Hemodynamics will remain stable., Cardiac rhythm will remain stable., Comfort level will be maintained., Respiratory function will remain adequate., Patient/ family verbilizes understanding of procedure., Procedure tolerated without complication., Recovers from procedure without complications.. 9:00:01 Use device set IR Diagnostic 9:00:05 Tegaderm 4 x 4 (1626W) opened to sterile field. 9:00:07 Sterile Angiographic Pack opened to sterile field. 9:00:08 Bag Decanter (2002S) opened to sterile field. 9:10:10 Patient received from Outpatients to IR Alert and oriented. Tansferred to table in Prone position. 9:20:29 GLIDE WIRE Angled Super Stiff 180cm ([id number]) opened to sterile field. 9:20:30 GLIDE CATHETER 5FR ANGLED 65cm (CG507) opened to sterile field. 9:20:44 Warm blankets applied for patient comfort. 9:20:44 Vital chart was started 9:21:49 Correct patient and procedure confirmed by team. 9:21:55 Signed procedure consent form obtained from patient. 9:21:58 ECG and BP/O2 sat monitors applied to patient. 9:22:02 Full Disclosure recording started 9:22:03 - 9::44 H&P Date Dictated: 07/19/2017 Within 30 days and on chart.. 9:22:49 Pre-procedure instructions explained to patient. 9:22:50 Pre-op teaching completed and patient verbalized understanding. 9:23:05 Family unavailable. 9:23:08 Patient NPO since Midnight. 9:23:13 Is the patient allergic to Iodine/contrast media? No. 9:25:41 Patient pain scale 4/10 ?. 9:25:59 IV patent on arrival in right wrist with 0.9% NaCl at KVO. 9:26:38 Right Lumbar was prepped with chlora-prep and draped in sterile fashion . 9:26:40 Alarms reviewed by R. N. 9:26:41 Sharps counted by scrub and verified by R.N. 9:27:14 Was the patient premedicated? No 9:27:17 Is patient on blood thinner?No 9:27:23 Patient diabetic? No. 9:27:33 - 9:27:35 ----Pre-sedation anethsthesia assessment.---- 9:27:41 Previous problem with sedation/anesthesia? No ? 9:27:44 Snore? No 9:27:47 Sleep apnea? No 9:27:50 Deviated septum? No 9:27:54 Opens mouth fully? Yes 9:27:57 Sticks out tongue? Yes 9:28:03 Dentures? No ? 9:28:36 KIT, INTRODUCER ACCUSTICK II W/C ([id number]) opened to sterile field. 9:32:31 CHIBA 22 X 15 needle opened to sterile field. 9:33:09 Physician arrived 9:33:15 --------ALL STOP TIME OUT------ 9:33:17 Final Timeout: patient, procedure, and site verified with staff and physician. All members of the team are in agreement. 9:33:37 Lumbar site verified by team. 9:33:47 Sedation plan: IV Moderate Sedation Medication:Versed, Fentanyl 9:35:25 Procedure started. 9:36:03 Versed 2 mg I.V. was administered by Mary Rosales RN; for sedation; 9:36:12 Fentanyl 50 mcg I.V. was administered by Mary Rosales RN; for sedation; 9:36:45 Local anesthetic to Lumbar area with Lidocaine 1% by Evette Obando MD.INITIAL ACCESS ONLY 9:37:01 Lidocaine 1% 20ml vial added to field was administered by Evette Obando MD; Per protocol; 9:37:11 Heparin Flush Bag (1000units/500ml NS) 1 bags added to field was administered by Evette Obando MD; Per protocol; 9:37:30 Oxygen 4 l/min etCO2 Nasal cannula was administered by Mary Rosales RN; Per protocol; 9:38:16 CEFIPIME 1 g I.V. was administered by Mary Rosales RN; Per protocol ; 9:39:53 22X15 chiba needle used to try to obtain access to the rt kidney. 9:40:27 Versed 2 mg I.V. was administered by Mary Rosales RN; for sedation; 9:44:04 Fentanyl 50 mcg I.V. was administered by Mary Rosales RN; for sedation; 9:46:03 CHIBA 20 X 15 needle opened to sterile field. 9:46:44 chiba 20x15 is now used to try to obtain access to the right kidney. 9:49:22 Fentanyl 50 mcg I.V. was administered by Mary Rosales RN; for sedation; 9:49:39 Baseline sample Acquired. 9:50:24 The accustick wire is advanced into rt kidney. 9:52:04 NITINOL .018 80cm wire ([id number]) opened to sterile field. 9:52:54 Accustick wire removed. .018 nitinol wire is advanced into the right kidney. 9:54:40 Fentanyl 50 mcg I.V. was administered by Mary Rosales RN; for sedation; 9:56:34 Nitinol wire removed. 9:57:52 .035 stiff glidewire advanced into bladder. 9:58:18 Versed 2 mg I.V. was administered by Mary Rosales RN; for sedation; 9:58:26 Fentanyl 50 mcg I.V. was administered by Mary Rosales RN; for sedation; 9:59:13 the 5 cayman islander glidecath is advanced into the right kidney and into the bladder. 10:01:59 Effectiveness of Versed delivered @ 9:36:03 is: Fully awake 10:02:02 Effectiveness of Fentanyl delivered @ 9:36:12 is: Fully awake 10:02:08 Effectiveness of Versed delivered @ 9:40:27 is: Dozing intermittently 10:02:13 Effectiveness of Fentanyl delivered @ 9:44:04 is: Dozing intermittently 10:02:16 Effectiveness of Fentanyl delivered @ 9:49:22 is: Dozing intermittently 10:02:19 Effectiveness of Fentanyl delivered @ 9:54:40 is: Dozing intermittently 10:02:23 Effectiveness of Versed delivered @ 9:58:18 is: Dozing intermittently 10:02:25 Effectiveness of Fentanyl delivered @ 9:58:26 is: Dozing intermittently 10:02:39 wire is removed. 10:02:50 Procedure ended.(Physican Out) 10:04:17 Fluoroscopy time 06.80 minutes. 10:04:23 Fluoroscopy dose: 70 mGy 10:04:23 Flurop Dose total: 70 10:04:31 Contrast amount:Isovue 300 25ml. 10:04:33 Sharps counted by scrub and verified by R.N. 10:04:40 Insertion/operative site no bleeding no hematoma. 10:04:56 Post Lumbar area:stable 10:05:06 Post procedure instruction explained to patient.Patient verbalizes understanding. 10:05:07 Patient needs reinforcement of post procedure teaching. 10:05:21 Post-op/insertion site Right Lumbar area dressed using a 4 x 4 and Tegaderm. 10:05:42 Procedure and supply charges have been captured, reviewed, submitted an d are correct. 10:09:10 Report given to Outpatients. 10:09:19 Patient transfered to Outpatients with Stretcher. 10:11:19 Pt transfered to pre-op holding. 10:12:11 Procedure ended. 10:12:11 Full Disclosure recording stopped 10:12:38 Vital chart was stopped Device Usage Item Name Manufacture Quantity Catalog Hospital Part Current Minimal Lot# / Number Charge Number Stock Stock Serial# Code Tegaderm 4 x 3M 1 1626W [id number] 5 4 (1626W) Sterile Cardinal 1 [id number] [id number] 5 Angiographic Health Pack Bag Decanter Microtek 1 2001S 517062 [id number] [id number] 5 (2001S) Medical Inc. GLIDE WIRE Terumo 1 [id number] 113307 395380 5 Angled Super Stiff 180cm (CA3618) GLIDE Terumo 1 CG507 355017 146764 5 CATHETER 5FR ANGLED 65cm (CG507) Javed BARCENAS 1 [id number] 245541 661476 784645 5 INTRODUCER Scientific ACCUSTICK II W/C ([id number]) CHIBA 22 X Cook Medical 1 [id number] 268278 640397 5 [id number] 15 needle CHIBA 20 X Cook Medical 1 H23460 966227 675040 5 [id number] 15 needle NITINOL .018 Medtronic 1 [id number] 688406 994834 5 80cm wire ([id number]) Signature Audit Speculator Stage Time Signature Unsigned Intra-Procedure 07/19/2017 Kelsi 10:12:34 AM Claudia GARZON (R) (CV) Signatures Monitor : Kelsi Signature : Claudia RT Date : Time : [facility] [address] [place] [address]
[~2017-07-19 06:50] MED LIST changes: +NORCO 7.5/325 T1 TA1 PO
[2017-07-19 07:16] VITALS: BP 110/75; BMI 25.1
[2017-07-19 12:51] VITALS: BP 136/74
[2017-07-19 15:33] VITALS: BP 141/78
[2017-07-19 16:47] VITALS: BP 142/78
[2017-07-19 20:44] VITALS: BP 113/75
[2017-07-20 01:17] VITALS: BP 124/74
[2017-07-20 04:54] VITALS: Ht 182.9 cm; Wt 84.1 kg
[2017-07-20 05:00] VITALS: BP 134/64
[2017-07-20 09:07] VITALS: BP 110/67
[2017-07-20 11:26] VITALS: BP 96/69
[2017-07-27 11:21] LABS: CALCULI - CA OXALATE DIHYDRATE 50 % (()); CALCULI - CA OXALATE MONOHYDR 30 % (()); CALCULI - CALCIUM PHOSPHATE 20 % (()); CALCULI - COLOR Brown (()); CALCULI - COMMENT Note: (()); CALCULI - WEIGHT 1736.6 mg (())
== END 2017-07-20 12:22 | disposition home or self-care (01) | DRG 660 ==
LOC: D.OPS 06:50 → D.PAN 08:00 → D.OPS 09:00 → D.MS 14:21 → D.OPS 14:22 → D.MS 14:22 → D.OPS 14:22 → D.MS 07-20 12:22 → D.OPS 07-20 14:00
PROVIDERS: Anesthesiology; Radiology Vascular & Interventional Radiology; Urology
PROC: 0TC04ZZ Extirpation of Matter from Right Kidney, Percutaneous Endoscopic Approach (ICD-10-PCS; 2017-07-19)
PROC: 0T9330Z Drainage of Right Kidney Pelvis with Drainage Device, Percutaneous Approach (ICD-10-PCS; principal; 2017-07-19 09:00)
DX: N13.2 Hydronephrosis with renal and ureteral calculous obstruction (principal)

== ENCOUNTER 2018-02-27 06:05 | Day surgery (SDC) | payer MEDICARE, BC ==
[~2018-02-27] VITALS: Ht 182.9 cm; Wt 81.8 kg
[2018-02-27 06:26] LABS: HEMATOCRIT 43.2 % (42.0-54.0); HEMOGLOBIN 14.8 g/dL (13.5-17.5); MCH 32.2 pg (26.0-34.0); MCHC 34.3 g/dL (31.0-37.0); MCV 94.1 fL (80.0-100.0); MEAN PLATELET VOLUME 9.6 fL (7.4-10.4); RBC 4.59 10x6/uL (4.20-6.10); RDW 13.7 % (11.5-14.5)
[2018-02-27 06:49] VITALS: BP 110/79; Ht 182.9 cm; Wt 81.8 kg
== END 2018-02-27 09:35 | disposition home or self-care (01) ==
LOC: D.OPS 06:05
PROVIDERS: Anesthesiology
DX: Z12.11 Encounter for screening for malignant neoplasm of colon (principal); K57.30 Diverticulosis of large intestine without perforation or abscess without bleeding; K64.8 Other hemorrhoids; Z01.812 Encounter for preprocedural laboratory examination